=== PATIENT | male | born 1975 | race Caucasian/White ===

== ENCOUNTER 2016-11-22 18:33 | Emergency (ER) | payer SELFPAY ==
--- OUTSIDE RECORDS SUMMARY | 2016-11-22 18:57 | XMS REPORT | Continuity of Care Document ---
:1975 Author Organization [facility] ([facility]) [place] [address] Phone [phone] Care Team Providers Name Role Phone Provider, No-Primary Care Primary Care Provider Unavailable Source Comments This disclosure is being made pursuant to the Care Everywhere program, applicable federal and state laws, and may not contain all informaitonavailable regarding this patient.[facility] ([facility]) Active Allergies and Adverse Reactions Allergen Noted Date Severity Reactions Comments Azithromycin 10/14/2015 Urticaria (Hives) Penicillins 10/14/2015 Angioedema Throat and tongue swells up; Current Medications Prescription Sig. Disp. Refills Start Date End Date Status naproxen sodium 220 mg Take 220 mg by Active capsule mouth 2 times daily as needed. Active Problems Problem Noted Date Low back pain 12/02/2015 Right-sided low back pain without sciatica 10/16/2015 Acquired scoliosis 10/16/2015 Most Recent Encounters Date Type Specialty Providers Description 10/29/2016 Office Visit Diabetes Services Default, Other Billg Chief Comp: Patient - Defo Reported Reason For Chidi Lucas MD Visit 08/26/2016 Orders/Notes Med Endocrinology Chidi Lucas MD Dx: Hypogonadism in male (Primary Dx) 08/26/2016 Telephone Diabetes Services Chidi Oscar MD Dx: Hypogonadism in male (Primary Dx) Social History Tobacco Use Types Packs/Day Years Used Date Former Smoker Cigarettes 1 17 Quit: 12/30/2015 Smokeless Tobacco: Former User Chew Tobacco Cessation:Counseling Given: Yes Comments: Alcohol Use Drinks/Week oz/Week Comments No Last Filed Vital Signs Vital Sign Reading Time Taken Blood Pressure 127/76 03/03/2016 7:26 AM CDT Pulse 107 03/03/2016 7:26 AM CDT Temperature 37.1 C (98.8 F) 03/03/2016 7:26 AM CDT Respiratory Rate 18 03/03/2016 7:26 AM CDT Height 1.87 m (6' 1.62") 02/24/2016 1:05 PM CDT Weight 68.5 kg (151 lb 0.2 oz) 03/03/2016 7:26 AM CDT Body Mass Index 19.59 03/03/2016 7:26 AM CDT Oxygen Saturation 97% 03/03/2016 7:26 AM CDT Plan of Care Health Maintenance Due Date Last Done Comments Hepatitis B Vaccine (1 of 3 - Primary Series) 1975 Tdap Vaccine 1988 Lipid Disorder Screening 1995 MMR Vaccine 1995 Td Vaccine 1995 Influenza Vaccine: Seasonal (#1) 04/13/2016 Results from Last 3 Months Not on file
--- OUTSIDE RECORDS SUMMARY | 2016-11-22 18:57 | XMS REPORT | Continuity of Care Document ---
:1975 Author Organization [facility] [facility] [place] [address] Care Team Providers Name Role Phone Unavailable Primary Care Provider Unavailable Source Comments This disclosure is being made pursuant to the [employer] program and maynot contain all information available regarding this patient.[employer] Active Allergies and Adverse Reactions Not on File Current Medications Be aware that medications may not be up to date as of this document. Alwaysverify current medications with the patient. Not on file Active Problems Not on file Social History Tobacco Use Types Packs/Day Years Used Date Never Assessed Plan of Care Health Maintenance Due Date Last Done Comments Retired-Pertussis Vaccine Adult 1996 Retired-Tetanus Vaccine Adult 1996 Retired-INFLUENZA VACCINE 05/14/2015 Results from Last 3 Months Not on file
[2016-11-22] MEDS ORDERED: IBUPROFEN 400 MG TABLET PO ONE (18:58)
[2016-11-22] MEDS ORDERED: IBUPROFEN 400 MG TABLET ONE (19:01)
--- NOTE | 2016-11-22 19:03 | ERNOTE ---
Medical Problem HPI - Narrative Date of Service: 11/22/16 - General Chief Complaint: Fever Time Seen by Provider: 11/22/16 18:49 Source: patient Exam Limitations: no limitations - Immun/Allergies/Home Medications Immunizations: IMMUNIZATION HX Immunizations Up to Date No History of Influenza Vaccine No Hx Pneumococcal Vaccination No Allergies/Adverse Reactions: Allergies azithromycin [From Zithromax] Allergy (Verified 11/22/16 18:47) Penicillins Allergy (Verified 11/22/16 18:47) Home Medications: HOME MEDICATIONS Cefuroxime Axetil [Ceftin] 500 mg PO BID #20 tab 11/22/16 [Last Taken Unknown] Naproxen [Naprosyn] 500 mg PO BID #20 tab 11/22/16 [Last Taken Unknown] - History of Present History Narrative: About mid afternoon today, he developed profound fatigue, myalgias, headache, a little sore throat and a cough. He smokes. His daughter has pneumonia. His significant other said he had a temperature of 105 today, just before coming to the [facility] ER. He drives truck. Timing: constant Severity: mild, moderate Modifying Factors - (Improves): Present: other - nothing Modifying Factors - (Worsens): Present: other - nothing Review of Systems - Review of Systems Constitutional: Present: fever, chills, diaphoresis, fatigue, malaise EYE: Present: no symptoms reported ENT: Present: sore throat Respiratory: Present: cough Cardiology: Present: no symptoms reported Gastrointestinal/Abdominal: Present: no symptoms reported Genitourinary: Present: no symptoms reported Musculoskeletal: Present: muscle pain, muscle stiffness, joint pain Skin: Present: no symptoms reported Neurological: Present: headache Endocrine: Present: no symptoms reported Hematologic/Lymphatic: Present: no symptoms reported Psych: Present: no symptoms reported All Other Systems: All systems neg except as marked - Patient's Past Medical History Patient History - Medical: Chronic Pain Patient History - Cardiac/Respiratory: No pertinent hx Patient History - Cancer: No Hx of Cancer Patient History - Surgical Procedures: No surgical history Patient History - Other: None - Social History Living Situations: home Abuse History: No History of abuse Psych History: No pertinent hx Smoking Status: Current every day smoker Alcohol Use: none Drug Use: none - Immunizations Immunizations Up to Date: No Hx Pneumococcal Vaccination: No History of Influenza Vaccine: No Physical Exam - Physical Exam General Appearance: Present: wd/wn, alert, no apparent distress Eye Exam: Normal inspection: bilateral, PERRL: bilateral, EOMI: bilateral Ears, Nose, Throat: Present: normal ENT inspection, nasal congestion, pharyngeal erythema, tonsillar exudate Neck: Present: normal inspection, nontender. Absent: lymphadenopathy (R), lymphadenopathy (L) Respiratory: Present: no respiratory distress, rhonchi Cardiovascular/Chest: Present: regular rate, rhythm, no murmur Gastrointestinal/Abdominal: Present: normal bowel sounds, nontender, nondistended, soft, no organomegaly Back Exam: Present: normal inspection Extremity Exam: Present: normal inspection, no edema Neurological Exam: Present: alert, oriented, normal mood/affect Skin Exam: Present: normal color, warm/dry ED Progress - Results and Orders Patient's Lab Results:: I have reviewed the patient's lab results. - Vital Signs Patient's Vital Signs:: I have reviewed the patient's vital signs. Vital Signs: Vital Signs 11/22/16 18:40 Temperature 37.5 C Pulse Rate 114 H Respiratory 18 Rate Blood Pressure 133/84 O2 Sat by Pulse 99 Oximetry - Progress/Reassessment Chief Complaint: Fever Departure - Departure Clinical Impression: Bronchitis, Acute viral pharyngitis Disposition: Home self-care Condition: Good Instructions: Pharyngitis, [id number], Acute Bronchitis Additional Instructions: Follow up with your doctor the end of next week. Prescriptions: Cefuroxime Axetil [Ceftin] 500 mg PO BID #20 tab Naproxen [Naprosyn] 500 mg PO BID #20 tab
[2016-11-22] MEDS ORDERED: CEFUROXIME AXETIL 500 MG TABLET PO ONE (19:34)
[2016-11-22] MEDS ORDERED: CEFUROXIME AXETIL 500 MG TABLET ONE (19:35)
[2016-11-22 21:28] VITALS: BP 112/63
== END 2016-11-22 19:39 | disposition home or self-care (01) ==
LOC: ER 18:33
DX: J20.9 Acute bronchitis, unspecified (principal); Z72.0 Tobacco use; J02.9 Acute pharyngitis, unspecified

== ENCOUNTER 2016-12-10 00:27 | Emergency (ER) | payer SELFPAY ==
[2016-12-10 00:39] VITALS: BP 133/76
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
--- OUTSIDE RECORDS SUMMARY | 2016-12-10 01:20 | XMS REPORT | Continuity of Care Document ---
:1975 Author Organization [facility] [place] [address] Care Team Providers Name Role Phone Unavailable Primary Care Provider Unavailable Source Comments This disclosure is being made pursuant to the [email or web address] program and maynot contain all information available regarding this patient.[facility] [facility] Active Allergies and Adverse Reactions Not on [...]
--- OUTSIDE RECORDS SUMMARY | 2016-12-10 01:20 | XMS REPORT | Continuity of Care Document ---
:1975 Author Organization [facility] ([facility]) Address [place] [address] Phone [phone] Care Team Providers Name Role Phone Provider, No-Primary Care Primary Care Provider Unavailable Source Comments This disclosure is being made pursuant to the Care Everywhere program, applicable federal and state laws, and may not contain all informaitonavailable regarding this patient.[facility] ([facility]) Active Allergies and Adverse Reactions Allergen [...] Reported Reason For Chidi Lucas MD Visit Social History Tobacco Use Types Packs/Day Years [...]
== END 2016-12-10 01:15 | disposition home or self-care (01) ==
LOC: ER 00:27
DX: L25.5 Unspecified contact dermatitis due to plants, except food (principal); Z72.0 Tobacco use